=== PATIENT | male | born 1990 | race Two or more races ===

== ENCOUNTER 2024-02-05 17:12 | Emergency (ER) | payer BC ==
[~2024-02-05] VITALS: Ht 185.4 cm; Wt 83.9 kg
[2024-02-05 17:29] VITALS: BP 118/79; TEMP 98.6
[2024-02-05] MEDS ORDERED: SULF1TAB48 PO (17:59)
[2024-02-05 18:05] VITALS: O2SAT 99
== END 2024-02-05 18:06 | disposition home or self-care (01) ==
LOC: ER 17:27
DX: L03.116 Cellulitis of left lower limb (principal)